=== PATIENT | female | born 1950 | race Caucasian/White ===

== ENCOUNTER 2022-10-17 07:03 | Day surgery (SDC) | payer OTHER ==
[~2022-10-17] VITALS: Ht 165.1 cm; Wt 72.6 kg
[2022-10-17] MEDS ORDERED: CILOXAN5 ML OTIC (14:48)
[2022-10-17] MEDS ORDERED: CEPHALEXIN500 MG PO (14:48)
== END 2022-10-17 17:30 | disposition home or self-care (01) ==
LOC: CIR.AMB 07:03
PROVIDERS: ATTEND Otolaryngology Otology & Neurotology
DX: H72.822 Total perforations of tympanic membrane, left ear (principal); H90.A32 Mixed conductive and sensorineural hearing loss, unilateral, left ear with restricted hearing on the contralateral side; Z20.822 Contact with and (suspected) exposure to COVID-19; R73.03 Prediabetes